=== PATIENT | female | born 1950 | race Caucasian/White ===

== ENCOUNTER → 2020-12-22 14:51 | Outpatient (CLI) | payer MEDICARE ==
[2020-12-22 15:17] LABS: BASOPHILS 0.4 % (0-2); HEMOGLOBIN 13.9 g/dL (12-16); LYMPHOCYTES 13.1 % (15-50); MCH 30.5 pg (26.0-34.0); MCV 92.4 fL (80.0-100.0); MEAN PLATELET VOLUME 9.2 fL (7.4-10.4); NEUTROPHILS 78.5 % (40-80); PLATELET COUNT 390 10x3/uL (130-400); RBC 4.55 10x6/uL (4.00-5.40); RDW 12.9 % (11.5-14.5); WBC 14.6 10x3/uL (4.8-10.8)
== END | disposition home or self-care (01) ==
LOC: D.LAB 14:51
PROVIDERS: ATTEND Internal Medicine Pulmonary Disease
DX: J45.909 Unspecified asthma, uncomplicated (principal); Z11.52 Encounter for screening for COVID-19

== ENCOUNTER → 2020-12-26 13:52 | Outpatient (CLI) | payer MEDICARE | END | disposition home or self-care (01) | LOC: D.LAB 13:00 → D.RT 14:00 | PROVIDERS: ATTEND Internal Medicine Pulmonary Disease | DX: J45.909 Unspecified asthma, uncomplicated (principal) ==